=== PATIENT | female | born 1940 | race Asian ===

== ENCOUNTER 2018-09-23 00:11 | Inpatient (IN) | payer OTHER ==
[2018-09-23] VITALS (29 sets, daily range): BP systolic 93–126; BP diastolic 46–92; PULSE 81–108; RESP 12–24; Ht 154.9 cm; Wt 55.0 kg
[~2018-09-23] VITALS: Ht 154.9 cm; Wt 55.0 kg
[2018-09-23] MEDS ORDERED: SODIUM CHLORIDE 0.9% 1L BAG IV* STA (04:29)
[2018-09-23] MEDS ORDERED: ACETAMINOPHEN 325 MG TAB PO STA (04:29)
[2018-09-23] MEDS ORDERED: CEFEPIME 2GM/50 ML (PMX) 50 ML IVPB STA (05:15)
[2018-09-23] MEDS ORDERED: VANCOMYCIN 1 GM (PMX) 250 ML IVPB ONE (05:30)
--- NOTE | 2018-09-23 05:44 | ERD ---
ER Documentation Chief Complaint Chief Complaint VOMIT, CODY X'S 1 DAY HPI This is a very pleasant 78 female, with some vomiting body aches and headache for the past day. She had 3 episodes of vomiting nonbilious nonbloody. Segment of a mild headache and mild body aches for the past 24 hours as well. No sick contacts at home. Denies fevers or chills. Denies any other current complaints. ROS All systems reviewed and are negative except as per history of present illness. Medications Home Meds Reported Medications Cyanocobalamin* (Vitamin B12*) 500 Mcg Tab, 1000 MCG PO DAILY, TAB 09/23/18 Omeprazole* (Omeprazole*) 40 Mg Capsule.dr, 20 MG PO DAILY 09/23/18 Metformin Hcl* (Metformin Hcl*) 1,000 Mg Tablet, 1000 MG PO BID 09/23/18 Aspirin Delayed Release (Aspirin Delayed Release) 81 Mg Tablet.dr, 81 MG PO DA JOSE 09/23/18 Cholecalciferol (Vitamin D3) (Vitamin D3) 50,000 Unit Capsule, 21433 UNIT PO TWICE A WEEK 09/23/18 Sitagliptin* (Januvia*) 100 Mg Tablet, 100 MG PO DAILY for 30 Days, #30 09/23/18 Gabapentin* (Gabapentin*) 300 Mg Capsule, 300 MG PO BID for 30 Days, #30 09/23/18 Amlodipine Besylate* (Amlodipine Besylate*) 5 Mg Tablet, 5 MG PO DAILY 09/23/18 Simvastatin (Simvastatin) 10 Mg Tablet, 10 MG PO QHS for 30 Days 09/23/18 Sertraline Hcl* (Sertraline Hcl*) 50 Mg Tablet, 50 MG PO DAILY for 30 Days, #30 09/23/18 Allergies Allergies: Uncoded Allergies: PCN (Allergy, Unknown, dizziness and blurred vision, 09/23/18) Physical Exam Vitals Vital Signs Date Temp Pulse Resp B/P (MAP) Pulse Ox O2 O2 Flow FiO2 Time Delivery Rate 09/23/18 99.3 100 17 69/44 (52) 97 Nasal 2.0 09:45 Cannula 09/23/18 103.1 08:46 09/23/18 103.1 103 22 97/48 (64) 95 Nasal 08:37 Cannula 09/23/18 98 16 132/85 92 Room Air 06:30 (101) 09/23/18 100.4 05:51 09/23/18 100.4 94 16 121/96 96 Room Air 05:09 (104) 09/23/18 99.2 88 18 103/49 95 00:16 (67) Physical Exam Const: No acute distress Head: Atraumatic Eyes: Normal Conjunctiva ENT: Normal External Ears, Nose and Mouth. Neck: Full range of motion. No meningismus. Resp: Clear to auscultation bilaterally Cardio: Regular rate and rhythm, no murmurs Abd: Soft, non tender, non distended. Normal bowel sounds Skin: No petechiae or rashes Back: No midline or flank tenderness Ext: No cyanosis, or edema Neur: Awake and alert Psych: Normal Mood and Affect Result Diagram: 09/23/1845109/23/18451 Results 24 hrs Laboratory Tests Test 09/23/18 04:28 09/23/18 04:44 09/23/18 04:52 09/23/18 04:58 Bedside Glucose 234 mg/dL Urine Color YELLOW Urine Clarity CLOUDY Urine pH 5.0 Bedside Urine pH 6.0 (LAB) Urine Specific 1.009 [place] Bedside Urine 2+ Protein (LAB) Bedside Urine 0.25% Glucose (UA) Urine Ketones NEGATIVE mg/dL Bedside Urine Negative Ketones (LAB) Bedside Urine 2+ Blood Urine Nitrite NEGATIVE mg/dL Bedside Urine Negative Nitrite (LAB) Urine Bilirubin NEGATIVE mg/dL Urine NEGATIVE mg/dL Urobilinogen Urine Leukocyte 3+ Beka/ul Esterase Bedside Urine 2+ Leukocyte Esteras e (L Urine Microscopic 22 /HPF RBC Urine Microscopic > 182 /HPF WBC Urine Squamous MODERATE /HPF Epithelial Cells Urine FEW /HPF Transitional Epithelial Cells Urine Bacteria MANY /HPF Urine Hemoglobin 2+ mg/dL Urine Glucose 3+ mg/dL Urine Total 2+ mg/dl Protein White Blood Count 27.2 10^3/ul Red Blood Count 4.45 10^6/ul Hemoglobin 13.3 g/dl Hematocrit 40.0 % Mean Corpuscular 89.9 fl Volume Mean Corpuscular 29.9 pg Hemoglobin Mean Corpuscular 33.3 g/dl Hemoglobin Concen t Red Cell 12.2 % Distribution Width Platelet Count 261 10^3/UL Mean Platelet 10.5 fl Volume Immature 1.300 % Granulocytes % Neutrophils % 83.3 % Lymphocytes % 8.4 % Monocytes % 6.5 % Eosinophils % 0.1 % Basophils % 0.4 % Nucleated Red 0.0 /100WBC Blood Cells % Immature 0.360 10^3/ul Granulocytes # Neutrophils # 22.7 10^3/ul Lymphocytes # 2.3 10^3/ul Monocytes # 1.8 10^3/ul Eosinophils # 0.0 10^3/ul Basophils # 0.1 10^3/ul Nucleated Red 0.0 10^3/ul Blood Cells # Sodium Level 136 mmol/L Potassium Level 4.7 mmol/L Chloride Level 90 mmol/L Carbon Dioxide 28 mmol/L Level Anion Gap 18 Blood Urea 21 mg/dl Nitrogen Creatinine 0.90 mg/dl Est Glomerular mL/min Filtrat Rate mL/min Glucose Level 267 mg/dl Lactic Acid Level 3.4 mmol/L Calcium Level 9.7 mg/dl Total Bilirubin 0.9 mg/dl Direct Bilirubin 0.00 mg/dl Indirect 0.9 mg/dl Bilirubin Aspartate Amino 55 IU/L Transf (AST/SGOT) Alanine 56 IU/L Aminotransferase (ALT/SGPT) Alkaline 70 IU/L Phosphatase Troponin I < 0.012 ng/ml Total Protein 9.0 g/dl Albumin 4.9 g/dl Globulin 4.10 g/dl Albumin/Globulin 1.19 Ratio POC Venous 3.1 mmol/L Lactate Test 09/23/18 05:41 09/23/18 06:58 Prothrombin Time 14.1 Sec Prothrombin Time 1.1 Ratio INR International 1.08 Normalized Ratio Activated 32.4 Sec Partial Thrombopl ast Time POC Venous 2.7 mmol/L Lactate Current Medications Medications Dose Sig/Najma Start Time Status Last (Trade) Ordered Route PRN Stop Time Admin Dose Reason Admin Sodium 1,580 ml BOLUS OVER 2 09/23/18 DC 09/23/18 Chloride HOURS STAT 04:29 04:29 (NS) IV* 09/23/18 04:31 650 mg ONCE STAT 09/23/18 DC 09/23/18 Acetaminophen PO 04:29 05:51 (Tylenol 09/23/18 04:31 Tab) Cefepime HCl 50 ml @ ONCE STAT 09/23/18 DC 100 mls/hr IVPB 05:15 09/23/18 07:52 Vancomycin 250 ml @ ONCE ONCE 09/23/18 DC 09/23/18 HCl 125 mls/hr IVPB 05:30 06:22 09/23/18 07:29 150 ml @ ONCE ONCE 09/23/18 DC 09/23/18 Levofloxacin/ 100 mls/hr IVPB 07:30 08:46 Dextrose 09/23/18 08:59 Sodium 1,000 ml @ Q1H ONCE 09/23/18 DC 09/23/18 Chloride 1,000 mls/hr IV 09:00 08:46 09/23/18 09:59 1,000 mg ONCE STAT 09/23/18 DC 09/23/18 Acetaminophen PO 08:40 08:46 (Tylenol 09/23/18 08:42 Tab) Procedures/MDM Patient's infectious symptoms have not stabilized and the patient is at risk of rapid decompensation. The patient will be admitted for careful hydration, antibiotic therapy, and infectious source control. Severe Sepsis Assessment: Infectious Source: Unknown End organ damage indicated by: [Lactate > 2.0 mmol/L Hypotension( SBP < 90 or >40 mmHG drop or MAP < 65) Severe Sepsis Managment: Blood Cultures X 2 before broad spectrum antibiotics initiated within 3 hours of recognition. Sepsis recognized at 4:53 AM 30 ml/kg NS bolus Completed Initial Lactate: 3.2 Repeat Lactate pending Critical Care: Time: 45 minutes, independent of any separately billable procedural time Treatments/Evaluations: Emergent fluid management, while maintaining close respiratory support. Immediate broad spectrum antibiotic therapy. Simultaneous assessment for possible sources in order to direct therapy. Consideration for invasive and chemical support to prevent respiratory or cardiac collapse. Septic Shock Assessment (1 hour post 30 ml/kg fluid bolus): Hypotension (SBP < 90 or 40 mmHg drop, MAP < 65): [No] Lactic acid > 4.0 [No] Perfusion Reassessment for Septic Shock: 98.6, pulse 88, respiratory rate 16, blood pressure 116/74 Heart Exam: [Tachycardic] Lung Exam: [No Crackles] Capillary Refill: [Delayed] Peripheral Pulses: [Radially present] Skin: [Mottled, pale] Accepting Care Team: Current data and ongoing care discussed. Time: 5:45 AM Primary Provider: Hospitalist Consulting: Deferred to inpatient team Outstanding Data: none 0815: I assumed care at 0600. Pt continues to receive IV fluids and antibiotics, which I have changed in response to a new report of PCN allergy. Her lactate is clearing and her BP has remained stable. She will require admission for pyelonephritis. I will speak with Dr. Smith for admission. 0950: Patient remained in the emergency department pending bed availability. Upon reevaluation at this time, patient's blood pressure is now low. She is awake alert oriented. She will continue with another IV fluid bolus and recheck of her blood pressure. I will upgrade her from MedSurg status. Pending response to the IV fluid bolus, she may require pressors. 1005: Dr. Smith at bedside. Pt. family now saying not PCN allergic. Zosyn given. Will continue to monitor BP and continue w/ fluids. Will reassess for pressors if remains hypotensive. Repeat lactate pending. Departure Diagnosis: Primary Impression: Sepsis Sepsis type: sepsis due to unspecified organism Qualified Codes: A41.9 - Sepsis, unspecified organism Condition: Serious MAURO GARCIA Sep 23, 2018 05:44 EULALIO GEORGE Sep 23, 2018 08:20
[2018-09-23] MEDS ORDERED: AMLO-145 PO (06:08)
[2018-09-23] MEDS ORDERED: SIMV10TA2 PO (06:08)
[2018-09-23] MEDS ORDERED: SERT50TA6 PO (06:08)
[2018-09-23] MEDS ORDERED: METF100010 PO (06:12)
[2018-09-23] MEDS ORDERED: OMEP40CA6 PO (06:12)
[2018-09-23] MEDS ORDERED: CYAN500T46 PO (06:12)
[2018-09-23] MEDS ORDERED: GABA300C16 PO (06:12)
[2018-09-23] MEDS ORDERED: SITA100T11 PO (06:12)
[2018-09-23] MEDS ORDERED: ASPI-1044 PO (06:12)
[2018-09-23] MEDS ORDERED: CHOL500051 PO (06:12)
[2018-09-23] MEDS ORDERED: LEVOFLOXACIN 750MG/D5W (PMX) 150 ML IVPB ONE (07:30)
[2018-09-23] MEDS ORDERED: ACETAMINOPHEN 500 MG TAB PO STA (08:40)
[2018-09-23] MEDS ORDERED: SOD CHLORIDE 0.9% 1,000 ML IV ONE (09:00)
[2018-09-23] MEDS ORDERED: ZOLPIDEM 5 MG TAB PO PRN (10:30)
[2018-09-23] MEDS ORDERED: PIPER-TAZO 3.375 GM IV (PMX) 100 ML IVPB ONE (10:30)
[2018-09-23] MEDS ORDERED: ONDANSETRON 4 MG INJ IV PRN (10:30)
[2018-09-23] MEDS ORDERED: DOCUSATE SODIUM 100 MG CAP PO PRN (10:30)
[2018-09-23] MEDS ORDERED: NACL 0.9% 3 ML SYG IV SCH (10:30)
[2018-09-23] MEDS ORDERED: LIDOCAINE 1% (MPF) 5 ML VIAL SC ONE (11:00)
[2018-09-23] MEDS ORDERED: NORepinephrine 8MG/250 ML (PMX 250 ML IV SCH ×3 (11:00)
--- NOTE | 2018-09-23 11:14 | HP ---
DATE OF ADMISSION: 09/23/2018 CHIEF COMPLAINT: Dysuria associated with nausea and vomiting. HISTORY OF PRESENT ILLNESS: A 78-year-old female with history of hypertension and type 2 diabetes me llitus, presented to emergency room with complaint of dysuria x2 days associated with nausea and vomi ting. The patient had 3 episodes of vomiting. No hematemesis. No abdominal pain. No flank pain. She reports subjective fevers. Initial evaluation in the emergency room revealed evidence of leukocy tosis with a white blood cell count of 27,000. Urinalysis shows a contaminated urine with many bacte yamilex and more than 182 white blood cells. Her blood pressure dropped in the emergency room to systoli c of 80. Daughter initially report that the patient is allergic to PENICILLIN , but upon further que stioning, there was no allergic reaction to PENICILLIN. I asked the ER physician to give her first d ose of Zosyn. PAST MEDICAL HISTORY: 1. Hypertension. 2. Type 2 diabetes mellitus. 3. Hyperlipidemia. MEDICATIONS PRIOR TO ADMISSION: 1. Amlodipine 5 mg daily. 2. Simvastatin 10 mg daily. 3. Aspirin 81 mg daily. 4. Gabapentin 300 mg b.i.d. 5. Sertraline 50 mg daily. 6. Omeprazole 40 mg daily. 7. Metformin 1000 mg b.i.d. 8. Januvia 100 mg daily. SOCIAL HISTORY: The patient lives at home. She denies tobacco or alcohol use. PHYSICAL EXAMINATION: GENERAL: Well-developed, well-nourished elderly female who is in no apparent distress. VITAL SIGNS: Blood pressure 70/44, temperature 99.3, respirations 17, pulse 100. HEENT: Extraocular muscles intact. Pupils are equal and reactive to light bilaterally. Sclerae are anicteric. Oropharynx is clear and moist. NECK: Supple, no JVD, no carotid bruits. LUNGS: Clear to auscultation bilaterally. CARDIAC: Regular rate and rhythm. No murmurs or gallops. ABDOMEN: Soft, nontender, nondistended, normoactive bowel sounds. BACK: No CVA tenderness. EXTREMITIES: No clubbing, cyanosis, or edema. NEUROLOGIC: Grossly nonfocal. LABORATORY DATA: Basic metabolic panel shows an anion gap of 18, a BUN of 21 and creatinine of 0.9. Initial lactate was 3.4 and repeat lactate was 2.7. Hemoglobin was 13.3, platelet count 261,000. ASSESSMENT: 1. A 78-year-old female with urosepsis. 2. Type 2 diabetes mellitus. 3. Hyperlipidemia. 4. History of hypertension. PLAN: 1. Admit to telemetry. IV Zosyn, IV fluid hydration, blood and urine cultures. 2. Plan of care was discussed with the patient and her daughter at the bedside. Dictated By: LILIA PARKER MD SK/NTS Conf#: [id number] DID#: [id number] CC: MAURO GARCIA MD;*EndCC*
[2018-09-23] MEDS: SOD CHLORIDE 0.9% 1,000 ML IV SCH ×2 (11:32→17:12)
[2018-09-23] MEDS: FAMOTIDINE 20 MG TAB PO SCH (13:38)
[2018-09-23] MEDS ORDERED: PIPER-TAZO 3.375 GM IV (PMX) 100 ML IVPB SCH (16:00)
[2018-09-23] MEDS ORDERED: GLUCAGON 1 MG INJ IM PRN (17:00)
[2018-09-23] MEDS ORDERED: GLUCOSE GEL 15 GRAM TUBE PO PRN ×2 (17:00)
[2018-09-23] MEDS ORDERED: GLUCOSE GEL 15 GRAM TUBE BUCCAL PRN (17:00)
[2018-09-23] MEDS ORDERED: DEXTROSE 50% 50 ML SYRINGE IV PRN ×2 (17:00)
[2018-09-23] MEDS: INSULIN ASPART [NOVOLOG] 3 ML PEN SC SCH ×2 (17:36→21:36)
[2018-09-24] VITALS (46 sets, daily range): BP systolic 88–122; BP diastolic 38–94; PULSE 88–100; RESP 11–26
[2018-09-24] MEDS: SOD CHLORIDE 0.9% 1,000 ML IV SCH ×3 (01:22→19:06)
[2018-09-24] MEDS: ACCU-CHEK XX SCH (01:30)
[2018-09-24] MEDS: FAMOTIDINE 20 MG TAB PO SCH (08:16)
[2018-09-24] MEDS: INSULIN ASPART [NOVOLOG] 3 ML PEN SC SCH ×4 (08:18→20:18)
[2018-09-24] MEDS ORDERED: POTASSIUM CHLORIDE 20 MEQ POWDER FOR ORAL SOLN GTB ONE (10:00)
[2018-09-24] MEDS ORDERED: PIPE3.374 IVPB (10:05)
[2018-09-24] MEDS: PIPER-TAZO 3.375 GM IV (PMX) 100 ML IVPB SCH ×3 (11:04→17:50)
--- NOTE | 2018-09-24 11:05 | DS ---
DATE OF ADMISSION: 09/23/2018 DATE OF DISCHARGE: 09/24/2018 DISCHARGE DIAGNOSES: 1. Gram-negative babak urosepsis. 2. Type 2 diabetes mellitus. 3. Hypertension. 4. Hyperlipidemia. HOSPITAL COURSE: A 78-year-old female with a history of hypertension, type 2 diabetes mellitus, and hyperlipidemia, presented to emergency room with complaint of dysuria x2 days associated with nausea and vomiting. The patient was diagnosed with gram negative rods urosepsis. She received IV Zosyn. Initially, she was found to be hypertensive. The patient was transferred to ICU and placed on norepi nephrine. Her blood pressure was stabilized. The patient had no complaint at the time of my visit. Final blood and urine culture results are pending, but grow negative. She is in stable condition fo r transfer to [facility]. IV Zosyn will be continued. PHYSICAL EXAMINATION: GENERAL: Well-developed, well-nourished, in no apparent distress. VITAL SIGNS: Stable. She is afebrile. NECK: Supple. LUNGS: Clear to auscultation bilaterally. CARDIAC: Regular rate and rhythm. ABDOMEN: Soft, nontender, nondistended. EXTREMITIES: No clubbing, cyanosis, or edema. NEUROLOGICAL: Nonfocal. PLAN: Plan is to transfer to [facility]. Continue IV Zosyn. Check final blood and urine culture results. Dictated By: LILIA LEMOS/DAVIN Conf#: [id number] DID#: [id number] CC: LILIA PARKER MD;*EndCC*
[2018-09-24] MEDS: ACETAMINOPHEN 325 MG TAB PO PRN (22:07)
[2018-09-25] VITALS (13 sets, daily range): BP systolic 115–140; BP diastolic 55–64; PULSE 72–98; RESP 17–20
[2018-09-25] MEDS: PIPER-TAZO 3.375 GM IV (PMX) 100 ML IVPB SCH ×2 (00:29→05:33)
[2018-09-25] MEDS: ACCU-CHEK XX SCH (01:37)
[2018-09-25] MEDS: SOD CHLORIDE 0.9% 1,000 ML IV SCH ×2 (05:32→21:34)
[2018-09-25] MEDS: INSULIN ASPART [NOVOLOG] 3 ML PEN SC SCH ×4 (07:59→20:27)
[2018-09-25] MEDS: FAMOTIDINE 20 MG TAB PO SCH (08:36)
--- NOTE | 2018-09-25 10:02 | PN ---
Date/Time of Note Date/Time of Note DATE: 09/25/18 TIME: 10:00 Subjective Feels better. But still weak. No abdominal pain. No flank pain. Objective Vitals Vital Signs Date Temp Pulse Resp B/P (MAP) Pulse Ox O2 O2 Flow FiO2 Time Delivery Rate 09/25/18 98 08:23 09/25/18 98.8 18 119/59 92 07:26 (79) 09/24/18 Room Air 17:00 09/24/18 2.0 06:00 Intake and Output 09/24/18 09/24/18 09/25/18 1515:00 23:00 07:00 IntakeIntake Total 1000 ml 235 ml 1350 ml OutputOutput Total 600 ml BalanceBalance 400 ml 235 ml 1350 ml Neck supple Lungs clear to auscultation bilaterally Cardiac regular rate and rhythm Abdomen soft nontender nondistended normoactive bowel sounds Extremities no clubbing cyanosis or edema Neurological nonfocal Results Result Diagram: 09/24/18 0430 09/24/18 0430 Medications Medications Current Medications Sodium Chloride 1,000 ml @ 75 mls/hr [id number] IV Last administered on 09/25/18at 05:32; Admin Dose 75 MLS/HR; Start 09/23/18 at 10:08 IV Flush (NS 3 ml) 3 ml PER PROTOCOL IV ; Start 09/23/18 at 10:30 Ondansetron HCl (Zofran Inj) 4 mg Q6H PRN IV NAUSEA/VOMITING; Start 09/23/18 at 10:30 Zolpidem Tartrate (Ambien) 5 mg QHS PRN PO .INSOMNIA; Start 09/23/18 at 10:30 Docusate Sodium (Colace) 100 mg Q12H PRN PO .CONSTIPATION; Start 09/23/18 at 10:30 Famotidine (Pepcid) 20 mg DAILY PO Last administered on 09/25/18at 08:36; Admin Dose 20 MG; Start 09/23/18 at 10:30 IV Flush (NS 10 ml) 10 ml PRN PRN IV IV PROTOCOL; Start 09/23/18 at 14:00 Diagnostic Test (Pha) (Accu-Chek) 1 ea 02 XX Last administered on 09/25/18at 01:37; Admin Dose 1 EA; Start 3/14/19 at 02:00 Insulin Aspart (Novolog Insulin Pen) NOVOLOG *MODERATE* ALGORITHM WITH MEALS BEDTIME SC Last administered on 09/24/18at 20:18; Admin Dose 1 UNIT; Start 09/23/18 at 17:35 Miscellaneous Information 1 ea NOTE XX ; Start 09/23/18 at 17:00 Glucose (Glutose) 15 gm Q15M PRN PO DECREASED GLUCOSE; Start 09/23/18 at 17:00 Glucose (Glutose) 22.5 gm Q15M PRN PO DECREASED GLUCOSE; Start 09/23/18 at 17:00 Dextrose (D50w Syringe) 25 ml Q15M PRN IV DECREASED GLUCOSE; Start 09/23/18 at 17:00 Dextrose (D50w Syringe) 50 ml Q15M PRN IV DECREASED GLUCOSE; Start 09/23/18 at 17:00 Glucagon (Glucagen) 1 mg Q15M PRN IM DECREASED GLUCOSE; Start 09/23/18 at 17:00 Glucose (Glutose) 15 gm Q15M PRN BUCCAL DECREASED GLUCOSE; Start 09/23/18 at 17:00 Acetaminophen (Tylenol Tab) 650 mg Q6H PRN PO MILD PAIN(1-3)OR ELEVATED TEMP Last administered on 09/24/18at 22:07; Admin Dose 650 MG; Start 09/24/18 at 22:00 Levofloxacin/ Dextrose 150 ml @ 100 mls/hr Q48H IVPB ; Start 09/25/18 at 11:00 VTE Prophylaxis Risk score (from Nsg)>0 risk: 8 SCD applied (from Nsg): Yes Lines/Catheters IV Catheter Type: Saline Lock Lawson in Place: No Assessment/Plan Assessment/Plan 78-year-old female with E. coli urosepsis, sensitive to most antibiotics Hypertension Type 2 diabetes mellitus Hyperlipidemia Anemia of chronic disease Changed to IV Levaquin Check CBC Physical therapy Discharge planning in a.m. Plan of care was discussed with the patient and her granddaughter at the bedside LILIA PARKER MD Sep 25, 2018 10:02
[2018-09-25] MEDS ORDERED: LEVOFLOXACIN 750MG/D5W (PMX) 150 ML IVPB SCH (11:00)
[2018-09-25] MEDS: ACETAMINOPHEN 325 MG TAB PO PRN ×2 (15:21→23:53)
[2018-09-26] VITALS (9 sets, daily range): BP systolic 109–145; BP diastolic 53–68; PULSE 64–85; RESP 18–20
[2018-09-26] MEDS: ACCU-CHEK XX SCH (01:46)
[2018-09-26] MEDS: FAMOTIDINE 20 MG TAB PO SCH (08:42)
[2018-09-26] MEDS ORDERED: LEVO750T25 PO (09:00)
[2018-09-26] MEDS ORDERED: ACET325T33 PO (09:00)
--- NOTE | 2018-09-26 09:00 | PDOCDIS ---
Discharge Instructions CONDITION [id number] Patient Condition: [id number] Good HOME CARE INSTRUCTIONS: [id number] Diet Instructions: [id number] y FOLLOW UP/APPOINTMENTS Follow-up Plan pcp 1 week LILIA PARKER MD Sep 26, 2018 09:00
[2018-09-26] MEDS: INSULIN ASPART [NOVOLOG] 3 ML PEN SC SCH ×3 (09:16→17:56)
--- NOTE | 2018-09-26 10:53 | DS ---
DATE OF ADMISSION: 09/23/2018 DATE OF DISCHARGE: ADDENDUM DISCHARGE DIAGNOSES: 1. A 78-year-old female with Escherichia coli urosepsis. 2. Type 2 diabetes mellitus. 3. Hypertension. 4. Hyperlipidemia. HOSPITAL COURSE: A 78-year-old female who presented with 2 days of dysuria associated with nausea an d vomiting. She was diagnosed with Escherichia coli urosepsis. Patient received IV Zosyn. Urine an d blood cultures grew E. coli sensitive to most antibiotics. The patient received IV Levaquin. Her white blood cell count improved. Initially I planned to send her to [facility], but her daughter refused. At this point, she is in stable condition for transition to [facility] for physical therapy. I continued oral Levaquin for additional 7 days. Plan of care was disc ussed with her daughter and her granddaughter. They agree with a skilled facility placement. Dictated By: LILIA LEMOS/DAVIN Conf#: [id number] DID#: [id number]
[2018-09-26] MEDS: SOD CHLORIDE 0.9% 1,000 ML IV SCH (11:14)
== END 2018-09-26 18:01 | DRG 872 ==
LOC: EDBD 00:11 → E/R 00:11 → ICU 08:23 → CANRESERV 09:35 → EDBEDREQSVC 14:50 → ICU 15:57 → 6WM 09-24 17:19
PROVIDERS: ADMIT Internal Medicine; ATTEND Internal Medicine
DX: A41.9 Sepsis, unspecified organism (principal); N39.0 Urinary tract infection, site not specified; R30.0 Dysuria; I10 Essential (primary) hypertension; E11.9 Type 2 diabetes mellitus without complications; E78.5 Hyperlipidemia, unspecified; B96.20 Unspecified Escherichia coli [E. coli] as the cause of diseases classified elsewhere; Z79.82 Long term (current) use of aspirin; Z79.84 Long term (current) use of oral hypoglycemic drugs
CPT/HCPCS: 36569; 71045; 76937; 80048; 80053; 81001; 81003; 82962; 83036; 83605; 84484; 85025; 85610; 85730; 87040; 87081; 87086; 87400; 93005; 96365; 96366; 97116; 97162; 97530; J1815; J1956; J2405; J2543; J3370; J7030